=== PATIENT | female | born 1965 | race Caucasian/White ===

== ENCOUNTER → 2018-04-17 14:12 | Outpatient (CLI) | payer BC, SELFPAY ==
[2018-04-17 14:35] LABS: Basophils # 0.1 K/mm3 (0-0.2); Basophils % 0.9 % (0.1-2.0); Eosinophils # 0.1 K/mm3 (0.0-0.4); Eosinophils % 1.8 % (0.1-12.0); Hematocrit 42.4 % (37.0-47.0); Hemoglobin 13.8 g/dL (12.2-16.2); Lymphocytes # 1.7 K/mm3 (0.7-4.5); Lymphocytes % 28.2 % (10-50); Mean Corpuscular HGB Conc 32.7 g/dL (31.8-35.4); Mean Corpuscular Hemoglobin 30.1 pg (27.0-31.2); Mean Corpuscular Volume 92.2 fl (81-99); Mean Platelet Volume 7.3 fl (7.4-10.4); Monocytes # 0.4 K/mm3 (0.1-1.0); Monocytes % 6.8 % (1.7-9.3); Neutrophils # 3.7 K/mm3 (1.8-7.8); Neutrophils % 62.2 % (37.0-80.0); Platelet Count 249 K/mm3 (142-424); Red Cell Distribution Width 12.7 % (11.5-17.5)
[2018-04-17 16:25] LABS: Anion Gap 15.3 mEq/L (5-15); Blood Urea Nitrogen 18 mg/dL (7-18); Calcium 8.9 mg/dL (8.5-10.1); Carbon Dioxide 28 mmol/L (21.0-32.0); Chloride 101 mmol/L (98-107); Estimated Glomerular Filt Rate 65 ml/min (>60); GFR (African American) 79 ML/MIN (>60); Glucose 79 mg/dL (74-106); Potassium 4.3 mmoL/L (3.5-5.1); Sodium 140 mmol/L (136-145)
== END ==
PROVIDERS: Visit Provider Otolaryngology
DX: H65.21 Chronic serous otitis media, right ear (principal); H70.13 Chronic mastoiditis, bilateral; H65.06 Acute serous otitis media, recurrent, bilateral; H93.91 Unspecified disorder of right ear; Z01.818 Encounter for other preprocedural examination
CPT/HCPCS: 36415; 80048; 85025; 93005

== ENCOUNTER 2020-05-21 18:52 | Emergency (ER) | payer BC, MEDICAID, SELFPAY ==
[2020-05-21 18:53] VITALS: BP 141/96; PULSE 68; RESP 16; TEMP 36.8; O2SAT 99; BMI 31.1
--- NOTE | 2020-05-21 18:58 | HMH.EDGENADL ---
ED Disposition Clinical Impression: Leg pain, anterior Qualifiers: Laterality: left Qualified Code(s): M79.605 - Pain in left leg Disposition: Still a Patient Condition on Discharge: Fair Referrals: Daniel Fontanez [Primary Care Provider] - - Critical Care Critical Care Time: No Attestation: On , the high probability of a clinically significant, sudden or life threatening deterioration of the following system(s) required my full and direct attention, intervention and personal management. The time I documented below is in addition to time spent performing reported procedures but includes the following listed in this critical care notation. Medical Decision Making - Medical Records Medical records reviewed: Yes: I reviewed the patient's medical records. - Adan Inquiry Pt receiving controlled substance: No Vital Signs: 05/21/20 18:53 Temperature 98.2 F Temperature Source Oral Pulse Rate [Left Radial] 68 Respiratory Rate 16 Blood Pressure [Right Arm] 141/96 H Blood Pressure Mean [Right Arm] 111 Blood Pressure Source [Right Arm] Automatic Cuff Blood Pressure Position [Right Arm] Sitting 02 Sat by Pulse Oximetry 99 Oxygen Delivery Method Room Air Orders (Tests/Meds): ORDERS Category Date Time Status CT lower leg LT wo con Stat Cat Scan 05/21/20 19:10 Ordered Basic Metabolic Panel Stat Lab 05/21/20 19:35 Received CRP [C-Reactive Protein] Stat Lab 05/21/20 19:35 Received Complete Blood Count Auto Diff Stat Lab 05/21/20 19:35 Received Erythrocyte Sedimentation Rate Stat Lab 05/21/20 19:35 Received Medical Decision Narrative: Patient 54-year-old female presenting with left lower leg pain. Patient hemodynamically stable on arrival. There is tenderness to the anterior distal tibia but no specific pain on palpation of the left ankle. No joint effusion. No erythema, site of inoculation, warmth to palpation. Full range of motion noted. Active and passive range of motion intact. At this time, differential diagnosis does include osteomyelitis versus gout/pseudogout versus arthritis. She has had negative ultrasound to rule out DVT over the past several days and she has no specific posterior calf tenderness. I would like to escalate the work-up and obtain a CT without contrast to further work-up for osteomyelitis. Inflammatory markers including ESR and CRP will also be obtained for further analysis. While awaiting work-up, patient care transferred to oncoming attending. Oncoming attending will follow up on imaging, lab work, and patient's clinical course and make appropriate disposition. Assessment: Left lower leg pain Hypertension Hyperlipidemia Diabetes Disposition: Per oncoming attending General Adult HPI - General Stated complaint: pain left leg Time Seen by Provider: 05/21/20 19:14 - History of Present Illness HPI narrative: Patient is a 54-year-old female history of hypertension, hyperlipidemia presenting with left lower leg pain. Patient states over the past 10 days she has had left lower leg pain to her anterior distal lower leg. She has been seen by her primary care doctor and had an ultrasound and x-rays that were negative for blood clot or any obvious abnormalities. The pain is atraumatic. Is sharp, constant, worse with weightbearing. No reduced range of motion left ankle. No DVT risk factors. MRI scheduled for next week but patient states the pain is just not improving. - Related Data Home Medications Medication Instructions Recorded Confirmed ergocalciferol (vitamin D2) 1,250 1 tab PO WEEKLY 84 Days #12/27/17 05/29/18 mcg (50,000 unit) capsule ferrous sulfate 325 mg (65 mg 325 mg PO DAILY tab 12/27/17 05/29/18 iron) tablet,delayed release fluoxetine 40 mg capsule 40 mg PO DAILY 90 Days #12/27/17 05/29/18 furosemide 20 mg tablet 20 mg PO DAILY 90 Days #12/27/17 05/29/18 levothyroxine 100 mcg tablet 100 mcg PO DAILY 90 Days #12/27/17
--- NOTE | 2020-05-21 19:10 | CT_ITS ---
PROCEDURE: CT LOWER LEG LT WO CON CLINICAL HISTORY: Lower leg pain s/p negative XR/US (r/o osteo) Pain in the left leg. Evaluate for osteomyelitis COMPARISON: No exams were available for comparison TECHNIQUE: Axial images obtained with sagittal and coronal reformats. All CT scans at the facility use one or more dose reduction, viz: automated exposure control, ma/kV adjustment per patient size (including targeted exams where dose is matched to indication, i.e. head), or iterative reconstruction technique. FINDINGS: No fracture or dislocation. No lytic or blastic change. There is subcutaneous edema about the ankle. There is mild pretibial edema distally. Small subchondral cyst is present within the talus at five mm. No radiopaque foreign body or soft tissue gas IMPRESSION: No acute fracture. No evidence of osteomyelitis. Mild subcutaneous soft tissue swelling Dictated by: Yuri Glass MD 05/22/2020 10:10 Yuri Glass MD in [place] 05/22/2020 10:10
[2020-05-21 19:23] VITALS: BP 143/83; PULSE 71; RESP 15; O2SAT 98
--- NOTE | 2020-05-21 19:41 | PC.NURSE ---
pt to RAD
[2020-05-21 19:49] LABS: Basophils # 0.1 K/mm3 (0-0.2); Basophils % 1.1 % (0.1-2.0); Eosinophils # 0.2 K/mm3 (0.0-0.4); Eosinophils % 2.8 % (0.1-12.0); Hematocrit 42.7 % (37.0-47.0); Hemoglobin 13.7 g/dL (12.2-16.2); Lymphocytes # 1.7 K/mm3 (0.7-4.5); Lymphocytes % 28.6 % (10-50); Mean Corpuscular Hemoglobin 30.2 pg (27.0-31.2); Mean Corpuscular Volume 94.3 fl (81-99); Mean Platelet Volume 7.8 fl (7.4-10.4); Monocytes # 0.4 K/mm3 (0.1-1.0); Monocytes % 7.1 % (1.7-9.3); Neutrophils # 3.7 K/mm3 (1.8-7.8); Neutrophils % 60.5 % (37.0-80.0); Platelet Count 264 K/mm3 (142-424); Red Blood Count 4.52 M/mm3 (4.20-5.40); Red Cell Distribution Width 13.2 % (11.5-17.5); White Blood Count 6.1 K/mm3 (4.8-10.8)
[2020-05-21 20:02] LABS: Anion Gap 10.7 mEq/L (5-15); Blood Urea Nitrogen 19 mg/dl (7-17); Calcium 9.5 mg/dl (8.4-10.2); Carbon Dioxide 28 mmol/L (22.0-30.0); Chloride 102 mmol/L (98-107); Creatinine Clearance Estimated 106 mL/min (50-200); Estimated Glomerular Filt Rate 74 ml/min (>60); GFR (African American) 90 ML/MIN (>60); Glucose 86 mg/dl (74-100); Potassium 3.7 mmoL/L (3.5-5.1); Sodium 137 mmol/L (136-145)
[2020-05-21 20:07] LABS: C-Reactive Protein 7.4 mg/L (0-4)
[2020-05-21 20:13] LABS: Erythrocyte Sedimentation Rate 16 mm/hr (0-30)
[2020-05-21 20:43] VITALS: BP 146/87; PULSE 71; RESP 16; TEMP 36.8; O2SAT 96
== END 2020-05-21 20:51 | disposition home or self-care (01) ==
PROVIDERS: Emergency Provider Emergency Medicine; PCP Family Medicine
DX: M79.605 Pain in left leg (principal); I10 Essential (primary) hypertension; E78.5 Hyperlipidemia, unspecified; K21.9 Gastro-esophageal reflux disease without esophagitis; F33.1 Major depressive disorder, recurrent, moderate; E11.9 Type 2 diabetes mellitus without complications; Z79.899 Other long term (current) drug therapy
CPT/HCPCS: 73700; 80048; 85025; 85651; 86140; 99283

== ENCOUNTER 2024-01-30 13:52 | Outpatient (POV) | payer BC, MEDICAID, SELFPAY ==
[2024-01-30 14:00] VITALS: BP 137/85; PULSE 54; RESP 18; O2SAT 99; BMI 25.0
--- NOTE | 2024-01-30 15:09 | A.OFFVIS_ITS ---
HPI Data of Consult Patient: new to practice Consult date: 01/30/24 Requesting Physician: Ann Casillas APRN Primary Care Provider: MARLENE Foreman Consult Narrative Reason for consult: Neck pain, bilateral upper extremity pain, headaches, low back pain, leg pa History of present illness: Ms. Bourgeois is a 58 year old female who presents today as a new patient. She is a referral from [facility]. Today she rates her pain a 7 out of 10. Patient states her pain is throughout multiple locations including her neck with radiating symptoms to her upper extremities and low back with radiating symptoms to her lower extremities. Patient states this been going on for years and progressively worsened over time. Patient has had prior lumbar fusion. Patient states that she has been to other pain offices and did even have injections in the back of her head that aggravated her overall symptoms. Patient does have migraines and has tried multiple medications including Nurtec with no additional relief. Patient does also state that she has recently had a MRI of her brain that did show white matter and that she is scheduled for follow-up coming up to discuss the findings. Patient states they are going between possible trigeminal neuralgia versus MS. Patient does describe her pain as a constant aching, throbbing sensation that interferes with her ability perform activities of daily living such as cooking and cleaning. Patient has tried oral medications, heat and ice, topicals, physical therapy with minimal relief. Patient states that she is just looking for something to provide better improvement. Patient has been tried on tramadol and Percocet in the past however she states that she really noticed no additional relief. Patient does also state that she was also tried on gabapentin and pregabalin however she could not tolerate either of these options. Her Adan has been reviewed and is appropriate. CC: Ann Casillas APRN [facility] Disclaimer: The information contained in this section may have been updated after the patient was seen, as this information can be updated by other users. Medical History (Updated 01/30/24 @ 15:12 by Ann Casillas APRN) Hernia Fibromyalgia IBS (irritable bowel syndrome) GERD (gastroesophageal reflux disease) Seasonal allergies PVD (peripheral vascular disease) Carpal tunnel syndrome Insomnia Anxiety Anemia Obesity HLD (hyperlipidemia) Vitamin D deficiency Hypothyroidism Surgical History (Updated 01/30/24 @ 14:23 by Radha Magdaleno RN) H/O: hysterectomy Hx of breast reduction, elective History of cholecystectomy Family History (Updated 01/30/24 @ 14:22 by Radha Magdaleno RN) Other Cancer Hypertension Social History Smoking Status: Never smoker second hand exposure: No alcohol intake: never substance use type: denies use current occupational status: employed Travel in the last 8 weeks: None household members: significant other housing: house current occupation: [employer] current occupational exposures/hazards: No caffeine: Yes Review of Systems Review of Systems Review of systems:: pertinent systems reviewed and negative unless documented below Review of systems (narrative): Review of Systems: General: No recent weight changes, no fever, no sleep disturbances Respiratory: No cough, no shortness of air, no recurring pulmonary infections Cardiovascular/peripheral vascular: No chest pain, no palpitations, no edema, no shortness of breath Gastrointestinal: No new onset incontinence, normal bowel movements reported Genitourinary: No new onset incontinence Musculoskeletal: Neck pain, upper extremity pain, migraines, low back pain, bilateral leg pain Psychiatric: [Normal mood/affect] Neurological: [Denies weakness in extremities], [denies balance issues] Meds Home Medications and Allergies Home Medications ?Medication ?Instructions ?Recorded ?Confirmed ?Type ergocalciferol (vitamin D2) 1,250 1 tab PO WEEKLY Supplement 84 days 12/27/17 05/29/18 History mcg (50,000 unit) capsule ##12 ferrous sulfate 325 mg (65 mg 325 mg PO DAILY Supplement 12/27/17 05/29/18 History iron) tablet,delayed release fluoxetine 40 mg capsule 40 mg PO DAILY anxiety/depression 12/27/17 05/29/18 History 90 days ##90 furosemide 20 mg tablet 20 mg PO DAILY Fluid 90 days ##90 12/27/17 05/29/18 History levothyroxine 100 mcg tablet 100 mcg PO DAILY thyroid 90 days 12/27/17 05/29/18 History ##90 metoprolol tartrate 50 mg tablet 50 mg PO DAILY bp 90 days ##90 12/27/17 05/29/18 History conjugated estrogens 0.9 mg tablet 0.625 mg PO DAILY hormone 04/30/18 05/29/18 History montelukast 10 mg tablet 10 mg PO QAM allergies 04/30/18 05/29/18 History esomeprazole magnesium 40 mg 40 mg PO DAILY Reflux/Acid reflux 05/01/18 05/29/18 History capsule,delayed release ciprofloxacin 0.3 %-dexamethasone 4 drp otic (ear) BID #7.5 mL 05/29/18 05/29/18 Rx 0.1 % ear drops,suspension (Ciprodex) prednisone 20 mg tablet 20 mg PO BID #10 tabs 05/21/20 Rx New Prescriptions to Start Prescriptions: Allergies Allergy/AdvReac Type Severity Reaction Status Date / Time No Known Allergies Allergy Verified 05/29/18 13:53 Objective Narrative: Physical Exam: General: Alert and oriented x3, no acute distress, pleasant and cooperative Lungs: Respirations even and unlabored, symmetrical chest expansion Eyes: PERRL Musculoskeletal: Flexion and extension of cervical [spine] somewhat guarded secondary to pain Neurological: Speech clear, no gross sensory deficit Additional findings Additional findings: MRI lumbar spine without and with contrast Findings: Multiplanar MR imaging of the lumbar spine was performed without contrast and with contrast. On the sagittal T2 weighted images abnormal decreased signal is seen throughout. There is discogenic endplate signal changes at L2-3. Patient is status post fusion at L5-S1. Vertebral alignment is normal. No evidence of fracture. Conus is seen at approximately L1 level and has unremarkable appearance. T12-L1 unremarkable. L1-L2: No significant canal or foraminal stenosis. L2-L3: Mild annular disc bulge with mild bilateral neuroforaminal narrowing. No significant canal stenosis. L3-L4: Minimal annular disc bulge without significant canal stenosis or neuroforaminal narrowing is seen. L4-L5: Minimal annular disc bulge and mild facet arthropathy without significant central canal stenosis or neuroforaminal narrowing. L5-S1: Postoperative changes of fusion with moderate right and mild left neuroforaminal narrowing. No abnormal contrast enhancement is at identified. 11/22/2023 Assessment and Plan *Assessment and plan (1) Neck pain: Status: Acute Category: Medical Code(s): M54.2 - Cervicalgia (2) Cervical radiculopathy: Status: Acute Category: Medical Code(s): M54.12 - Radiculopathy, cervical region (3) Degenerative disc disease, lumbar: Status: Acute Category: Medical Code(s): M51.36 - Other intervertebral disc degeneration, lumbar region (4) Lumbar radiculopathy: Status: Acute Category: Medical Code(s): M54.16 - Radiculopathy, lumbar region Plan Patient is experiencing significant pain in multiple locations. I did discuss with patient in future she may benefit from additional injections or possible spinal cord stimulator or pump trial however the patient is asking whether or not if we could try some medications. We did spiritual counselor the patient that we do not do any scheduled medications for new patients. I did discuss however that we can try amitriptyline 10 mg at bedtime and baclofen 5 mg 3 times daily as needed and provide a 2-week supply of these medications. Patient will return to clinic in 2 weeks for reevaluation of symptoms and plan of care. We are still waiting to get her cervical imaging from [facility]. Patient has been instructed to contact the clinic with any concerns before the next appointment. Dr. Hernandez has reviewed this note and agrees with this plan of care. This note was dictated using voice recognition software and make contain errors or omissions. All injections are used with Lidocaine or Bupivacaine and Depo Medrol.
== END 2024-01-30 23:59 | disposition home or self-care (01) ==
PROVIDERS: PCP Physician Assistant; Visit Provider Nurse Practitioner Family
DX: M54.2 Cervicalgia (principal); M54.12 Radiculopathy, cervical region; M51.16 Intervertebral disc disorders with radiculopathy, lumbar region; Z73.89 Other problems related to life management difficulty
CPT/HCPCS: 99202; G0463